=== PATIENT | female | born 1990 | race Caucasian/White ===

== ENCOUNTER 2018-01-05 11:24 | Observation (INO) | payer MEDICAID ==
--- NOTE | 2018-01-05 11:33 | EDPHY ---
H & P Stated Complaint: N/V INTERMITTENT PELVIC PAIN/DIABETIC "THOUGHT IT WAS A HANGOVER" Time Seen by Provider: 01/05/18 11:32 HPI/ROS: CHIEF COMPLAINT: Pelvic pain, vomiting, diabetic female HISTORY OF PRESENT ILLNESS: The patient has a history of insulin-dependent diabetes and presents to the ED with 2 days of intractable vomiting and elevated blood sugars. The patient reports she is also having intermittent generalized pelvic discomfort. She denies any vaginal bleeding, discharge or dysuria. The patient denies any recent hospitalizations for diabetic ketoacidosis. She is on long and short-acting insulin which she has been compliant with. She reports her blood sugar this morning was 350. The patient denies any diarrhea. She denies additional acute complaints aside from mild to moderate bilateral lower pelvic pain. REVIEW OF SYSTEMS: A comprehensive 10 point review of systems is otherwise negative aside from elements mentioned in the history of present illness. Source: Patient - Personal History LMP (Females 10-55): 1-7 Days Ago Current Tetanus/Diphtheria Vaccine: Yes - Medical/Surgical History Hx Diabetes: Yes Other PMH: DIABETIC - Social History Smoking Status: Never smoked - Physical Exam Exam: General Appearance: Alert, no distress Eyes: Pupils equal and round no pallor or injection ENT, Mouth: Dry mucous membranes Respiratory: There are no retractions, lungs are clear to auscultation Cardiovascular: Regular rate and rhythm Gastrointestinal: Minimal bilateral lower abdominal tenderness, no peritoneal signs, normal bowel sounds Neurological: 5/5 strength all 4 extremities Skin: Warm and dry, no rashes Musculoskeletal: Neck is supple nontender Extremities: symmetrical, full range of motion Constitutional: Initial Vital Signs Temperature (C) 36.5 C 01/05/18 11:29 Heart Rate 104 H 01/05/18 11:29 Respiratory Rate 18 01/05/18 11:29 Blood Pressure 138/73 H 01/05/18 11:29 O2 Sat (%) 100 01/05/18 11:29 O2 Delivery Mode Room Air Allergies/Adverse Reactions: No Known Allergies Allergy (Verified 01/05/18 13:20) Home Medications: Medication Instructions Recorded Insulin Aspart [novoLOG] 0 unit SQ TIDMEAL 01/05/18 Insulin Detemir [Levemir] 35 unit SQ DAILY 01/05/18 Melatonin [Melatonin 5 mg] 5 mg PO HS 01/05/18 Medical Decision Making ED Course/Re-evaluation: The patient presents to the ED with hyperglycemia, vomiting dehydration. She is noted to be in diabetic ketoacidosis with a venous pH of 7.1 a an anion gap of 33. The patient received 3 L of normal saline. She is started on insulin drip. I consulted the hospitalist at 12:45pm for ICU admission. She will be admitted Dr. Ramirez. Re-evaluated the patient at 1:00 p.m.. She is informed of the plan for admission and diagnosis of diabetic ketoacidosis. Differential Diagnosis: Differential diagnosis considered includes diabetic ketoacidosis, gastroenteritis, ectopic , urinary tract infection, hypokalemia, renal failure Critical Care Time: Critical care time exclusive of procedures and exclusive of the PA's time was 35 minutes, performed by myself, Estevan Lopez MD. The patient presents to the ED with diabetic ketoacidosis. She received aggressive fluid rehydration and was started on insulin drip. She will be admitted to the intensive care unit for further stabilization. - Data Points Laboratory Results: Laboratory Results 01/05/18 11:46 01/05/18 11:46 01/05/18 01/05/18 01/05/18 12:25 12:25 11:47 WBC RBC Hgb Hct MCV MCH MCHC RDW Plt Count MPV Neut % (Auto) Lymph % (Auto) [place] % (Auto) Eos % (Auto) Baso % (Auto) Nucleat RBC Rel Count Absolute Neuts (auto) Absolute Lymphs (auto) Absolute Monos (auto) Absolute Eos (auto) Absolute Basos (auto) Absolute Nucleated RBC Immature Gran % Immature Gran # Puncture Site VENOUS VBG pH 7.12 L 7.12 L* (7.31-7.42) (7.31-7.42) VBG HCO3 7 mEQ/L L mEQ/L (22-26) VBG Total CO2 8 mEq/L L mEq/L (21-27) VBG O2 Saturation 91 % H % (65-75) VBG Base Excess -21.2 mEq/L L mEq/L (-2.5-2.5) Mixed VBG pCO2 24 mmHg L mmHg (40-44) Mixed VBG pO2 82 mmHG H mmHG (35-40) Sodium Potassium Chloride Carbon Dioxide Anion Gap BUN Creatinine Estimated GFR Glucose Calcium Beta-Hydroxybutyrate Beta HCG, Qual Urine Color PALE YELLOW Urine Appearance HAZY Urine pH 5.0 (5.0-7.5) Ur Specific Joy 1.025 (1.002-1.030) Urine Protein NEGATIVE (NEGATIVE) Urine Ketones 2+ H (NEGATIVE) Urine Blood 2+ H (NEGATIVE) Urine Nitrate NEGATIVE (NEGATIVE) Urine Bilirubin NEGATIVE (NEGATIVE) Urine Urobilinogen NEGATIVE EU EU (0.2-1.0) Ur Leukocyte Esterase 1+ H (NEGATIVE) Urine RBC 3-5 /hpf H /hpf (0-3) Urine WBC 3-5 /hpf H /hpf (0-3) Ur Epithelial Cells 1+ /lpf /lpf (NONE-1+) Urine Bacteria TRACE /hpf H /hpf (NONE SEEN) Urine Mucus TRACE /lpf /lpf (NONE-1+) Urine Glucose 3+ H (NEGATIVE) 01/05/18 01/05/18 01/05/18 11:46 11:46 11:46 WBC 18.93 10^3/uL H 10^3/uL (3.80-9.50) RBC 5.10 10^6/uL 10^6/uL (4.18-5.33) Hgb 15.2 g/dL g/dL (12.6-16.3) Hct 47.4 % H % (38.0-47.0) MCV 92.9 fL fL (81.5-99.8) MCH 29.8 pg pg (27.9-34.1) MCHC 32.1 g/dL L g/dL (32.4-36.7) RDW 12.6 % % (11.5-15.2) Plt Count 391 10^3/uL 10^3/uL (150-400) MPV 10.9 fL fL (8.7-11.7) Neut % (Auto) 83.7 % H % (39.3-74.2) Lymph % (Auto) 9.5 % L % (15.0-45.0) [place] % (Auto) 5.6 % % (4.5-13.0) Eos % (Auto) 0.1 % L % (0.6-7.6) Baso % (Auto) 0.3 % % (0.3-1.7) Nucleat RBC Rel Count 0.0 % % (0.0-0.2) Absolute Neuts (auto) 15.85 10^3/uL H 10^3/uL (1.70-6.50) Absolute Lymphs (auto) 1.79 10^3/uL 10^3/uL (1.00-3.00) Absolute Monos (auto) 1.06 10^3/uL H 10^3/uL (0.30-0.80) Absolute Eos (auto) 0.01 10^3/uL L 10^3/uL (0.03-0.40) Absolute Basos (auto) 0.06 10^3/uL 10^3/uL (0.02-0.10) Absolute Nucleated RBC 0.00 10^3/uL 10^3/uL (0-0.01) Immature Gran % 0.8 % % (0.0-1.1) Immature Gran # 0.16 10^3/uL H 10^3/uL (0.00-0.10) Puncture Site VBG pH VBG HCO3 VBG Total CO2 VBG O2 Saturation VBG Base Excess Mixed VBG pCO2 Mixed VBG pO2 Sodium 136 mEq/L mEq/L (135-145) Potassium 4.6 mEq/L mEq/L (3.3-5.0) Chloride 96 mEq/L L mEq/L (97-110) Carbon Dioxide 7 mEq/l L* mEq/l (22-31) Anion Gap 33 mEq/L H mEq/L (8-16) BUN 22 mg/dL mg/dL (7-23) Creatinine 1.0 mg/dL mg/dL (0.6-1.0) Estimated GFR > 60 Glucose 472 mg/dL H mg/dL (70-100) Calcium 10.6 mg/dL H mg/dL (8.5-10.4) Beta-Hydroxybutyrate Beta HCG, Qual NEGATIVE Urine Color Urine Appearance Urine pH Ur Specific Joy Urine Protein Urine Ketones Urine Blood Urine Nitrate Urine Bilirubin Urine Urobilinogen Ur Leukocyte Esterase Urine RBC Urine WBC Ur Epithelial Cells Urine Bacteria Urine Mucus Urine Glucose 01/05/18 11:42 WBC RBC Hgb Hct MCV MCH MCHC RDW Plt Count MPV Neut % (Auto) Lymph % (Auto) [place] % (Auto) Eos % (Auto) Baso % (Auto) Nucleat RBC Rel Count Absolute Neuts (auto) Absolute Lymphs (auto) Absolute Monos (auto) Absolute Eos (auto) Absolute Basos (auto) Absolute Nucleated RBC Immature Gran % Immature Gran # Puncture Site VBG pH VBG HCO3 VBG Total CO2 VBG O2 Saturation VBG Base Excess Mixed VBG pCO2 Mixed VBG pO2 Sodium Potassium Chloride Carbon Dioxide Anion Gap BUN Creatinine Estimated GFR Glucose Calcium Beta-Hydroxybutyrate Pending Beta HCG, Qual Urine Color Urine Appearance Urine pH Ur Specific Joy Urine Protein Urine Ketones Urine Blood Urine Nitrate Urine Bilirubin Urine Urobilinogen Ur Leukocyte Esterase Urine RBC Urine WBC Ur Epithelial Cells Urine Bacteria Urine Mucus Urine Glucose Medications Given: Sodium Chloride (Ns) 1,000 mls @ 1,000 mls/hr IV EDNOW ONE PRN Reason: Protocol Stop: 01/05/18 13:32 Last Admin: 01/05/18 13:02 Dose: 1,000 mls Potassium Chloride (Potassium Cl 10 Meq (Premix)) 100 mls @ 100 mls/hr IV EDNOW ONE Stop: 01/05/18 13:44 Last Admin: 01/05/18 13:02 Dose: 100 mls Discontinued Medications Sodium Chloride (Ns) 1,000 mls @ 0 mls/hr IV EDNOW ONE; Wide Open PRN Reason: Protocol Stop: 01/05/18 11:51 Last Admin: 01/05/18 11:54 Dose: 1,000 mls Sodium Chloride (Ns) 1,000 mls @ 0 mls/hr IV EDNOW ONE; Wide Open PRN Reason: Protocol Stop: 01/05/18 11:51 Last Admin: 01/05/18 11:55 Dose: 1,000 mls Insulin Human Regular 100 unit / Miscellaneous Medication 1 ea/ Sodium Chloride 101 mls @ 0 mls/hr IV EDNOW ONE; Per Protocol PRN Reason: Protocol Stop: 01/05/18 12:34 Last Admin: 01/05/18 13:16 Dose: 101 mls Ondansetron HCl (Zofran) 4 mg IVP EDNOW ONE Stop: 01/05/18 11:51 Last Admin: 01/05/18 11:54 Dose: 4 mg Departure - Departure Disposition: [facility] Inpatient Acute Clinical Impression: Diabetic ketoacidosis Condition: Fair
[2018-01-05] MEDS ORDERED: NS 1,000 ML IV ONE ×3 (11:50→12:33)
[2018-01-05] MEDS ORDERED: ONDANSETRON 4 MG/2 ML VIAL IVP ONE (11:50)
[2018-01-05 11:52] LABS: PLATELET COUNT 391 10^3/uL (150-400)
[2018-01-05] MEDS ORDERED: INSULIN REGULAR HUMAN 100 UNIT, COSIGN. REQUIRED 1 EA in NS 100 ML IV ONE (12:33)
[2018-01-05] MEDS ORDERED: POTASSIUM Cl (KCl) 10 MEQ/100 ML BAG IV ONE (12:45)
[2018-01-05] MEDS ORDERED: POTASSIUM Cl (KCl) 100 ML IV ONE ×2 (12:45→12:46)
[2018-01-05] MEDS ORDERED: ACETAMINOPHEN 325 MG TAB PO PRN (12:56)
[2018-01-05] MEDS ORDERED: ONDANSETRON DISINTEGRATING 4 MG TAB PO PRN (12:56)
[2018-01-05] MEDS ORDERED: ONDANSETRON 4 MG/2 ML VIAL IVP PRN (12:56)
--- NOTE | 2018-01-05 15:28 | GHP ---
[f rep st] HISTORY AND PHYSICAL DATE OF ADMISSION: 01/05/2018 CHIEF COMPLAINT: DKA. HISTORY OF PRESENT ILLNESS: A pleasant 27-year-old female with type 1 diabetes on insulin, presenting with persistent nausea and vomiting for the past 2 days. She was at a rugby tournament on Friday and had a very long day of drinking alcohol. She threw up once that night and then had progressive nausea, vomiting beginning the next day to the point where she was unable to keep anything down. She complains of lower abdominal pain, which she contributes to retching. Has felt hot. No chills or sweats. Denies cough. Has a chronically runny nose. No dysuria, urinary frequency, urgency, or diarrhea. She has been trying to keep Pedialyte down. Has had hospitalization in the past for DKA, but it has been several years. REVIEW OF SYSTEMS: I completed a 10-point review of systems, negative, except as noted in HPI. PAST MEDICAL HISTORY: Includes type 1 diabetes, on insulin, prior DKA, history of ruptured ovarian cysts. PAST SURGICAL HISTORY: Tonsils and adenoidectomy. SOCIAL HISTORY: Lives in [place] with her boyfriend. Drinks 1-2 alcoholic drinks a night. Smokes marijuana. No illicits. No tobacco. Works for [employer]. FAMILY HISTORY: Great aunt and uncle with diabetes. Maternal grandmother with a stroke. Maternal grandfather with heart issues. ALLERGIES: None. HOME MEDICATIONS: Melatonin, Levemir 35 units daily, sliding scale NovoLog. PHYSICAL EXAMINATION: VITAL SIGNS: Temperature 36.5, blood pressure 138/73, heart rate 104 to 110s, respirations 18, 100% on room air. GENERAL: Well- appearing female, sitting up in no acute distress. HEENT: PERRLA. Mildly dry mucous membranes. CV: Tachy, regular. No murmurs, gallops, or rubs. LUNGS: Clear. No crackles or wheezing. ABDOMEN: Soft, nontender, nondistended. Positive bowel sounds. : No Medel. No suprapubic or CVA tenderness. MUSCULOSKELETAL: 5/5 upper lower extremity strength. SKIN: Warm, dry. No ulceration or rash. NEURO: 2 through 12 intact. PSYCH: Alert and oriented x3. LABORATORY DATA: WBCs 18, hemoglobin 15, hematocrit 47. VBG: pH 7.12, bicarb 7, CO2 8. Sodium 140, potassium 4.5, chloride 107, carbon dioxide 7, BUN 20, creatinine 0.8, glucose 340, repeat 472. Negative test. UA: +1 leukocyte esterase, negative nitrites, trace bacteria. ASSESSMENT/PLAN: 1. Diabetic ketoacidosis: due to acute nausea, vomiting with alcohol binge. Has pyuria on UA, but hold of abx until culture since asymptomatic. Monitor in the ICU on insulin drip and DKA protocol. 2. Tachycardia: from dehydration: Give intravenous fluids. 3. Leukocytosis: Stress inflammation and dehydration. Repeat in the morning after fluids. 4. Anion gap metabolic acidosis, secondary to starvation ketoacidosis: Again, diabetic ketoacidosis protocol, intravenous fluids. 5. Deep venous thrombosis prophylaxis: Low risk, ambulatory. DISPOSITION: Patient warrants observation admission given acute DKA warranting insulin drip, ICU monitoring, serial labs. /[id number]/MODL MTDD
[2018-01-05] MEDS ORDERED: INSULIN REGULAR HUMAN 100 UNIT in NS 100 ML IV SCH (15:30)
[2018-01-05] MEDS ORDERED: NS 500 ML IV ONE ×2 (15:30→16:40)
[2018-01-05] MEDS ORDERED: RN:ENTER POTASSIUM ICU PROTOCOL ON WORKLIST MISC ONE (15:30)
[2018-01-05] MEDS ORDERED: D10W 1,000 ML IV SCH ×2 (15:30)
[2018-01-05] MEDS ORDERED: D50W 25 GM/50 ML SYR IVP PRN ×2 (15:30)
[2018-01-05] MEDS ORDERED: PROTOCOL POTASSIUM 1 DOSE MISC PRN (15:43)
[2018-01-05] MEDS ORDERED: NS 1,000 ML IV SCH (17:40)
[2018-01-05] MEDS ORDERED: HYOSCYAMINE SULFATE 0.125 MG TAB PO PRN (19:47)
[2018-01-05] MEDS ORDERED: CALCIUM CARBONATE 500 MG CHEWABLE TAB PO PRN (19:48)
[2018-01-05] MEDS ORDERED: MAG HYDROX/AL HYDROX/SIMETH 30 ML UDCUP PO PRN (19:48)
[2018-01-05] MEDS ORDERED: MELATONIN 3 MG TAB PO SCH (21:00)
[2018-01-05] MEDS ORDERED: D50W 25 GM/50 ML VIAL IVP PRN (21:57)
[2018-01-05] MEDS: INSULIN LISPRO 100 UNIT/ML SC SCH (23:38)
[2018-01-06] MEDS ORDERED: POTASSIUM Cl (KCl) 10 MEQ in NS 100 ML IV SCH (04:00)
[2018-01-06] MEDS ORDERED: POTASSIUM CL 10 MEQ TAB PO ONE ×2 (07:30→10:45)
[2018-01-06] MEDS: INSULIN LISPRO 100 UNIT/ML SC SCH (07:58)
[2018-01-06 08:09] VITALS: BP 108/57
[2018-01-06] MEDS ORDERED: INSULIN GLARGINE 100 UNITS/ML UNIT SC SCH (09:00)
--- NOTE | 2018-01-06 11:24 | GDS ---
[f rep st] DISCHARGE SUMMARY DISCHARGE DIAGNOSES: 1. Diabetic ketoacidosis. 2. Tachycardia. 3. Leukocytosis. 4. Anion gap metabolic acidosis. HISTORY OF PRESENT ILLNESS: A pleasant 27-year-old type 1 female on insulin, presented with persistent nausea and vomiting for the past 2 days. She was at a [employer] tournament on Friday and had a very long day of drinking. She threw up that night, and then had progressive nausea beginning the next day, to the point where she was unable to keep anything down. She complains of lower abdominal pain, which she attributes to retching. Denies cough, dysuria, urinary frequency, or diarrhea. HOSPITAL COURSE BY PROBLEM: 1. DKA: Secondary to acute nausea/vomiting with alcohol binge. Had pyuria on UA, but negative culture. No symptoms. She was treated with insulin drip. Gap closed quickly. She is to be transitioned back to her home insulin. She is now eating and drinking without issue. 2. Tachycardia due to severe dehydration. This has resolved. 3. Leukocytosis. White count was 18 at time of admission. This was stress inflammation, dehydration, now 13, afebrile without any infectious symptoms. 4. Anion gap metabolic acidosis secondary to starvation ketosis. This closed with insulin and fluids. 5. Disposition: Patient is stable for discharge home. NEW MEDICATIONS: None. FOLLOWUP: With her primary and riveter hand. PHYSICAL EXAM: VITAL SIGNS: Temperature 36.7, blood pressure 108/57, heart rate in the 80s, respirations 16, 94% on room air. GENERAL: Well appearing, smiling, sitting up in bed, no acute distress. HEENT: PERRLA. Moist mucous membranes. CV: Regular rate and rhythm. LUNGS: Clear. ABDOMEN: Soft, nontender. Positive bowel sounds. : No CVA or suprapubic tenderness. MUSCULOSKELETAL: 5/5 upper and lower extremity strength. NEURO: Cranial nerves 2 through 12 intact. PSYCH: Alert and oriented x3. /[id number]/MODL MTDD
== END 2018-01-06 11:28 | disposition home or self-care (01) ==
LOC: INTOOBSV 12:45 → F2N 14:18
PROVIDERS: ADMIT Internal Medicine; ATTEND Internal Medicine
DX: E10.10 Type 1 diabetes mellitus with ketoacidosis without coma (principal); R00.0 Tachycardia, unspecified; D72.829 Elevated white blood cell count, unspecified; E86.0 Dehydration; Z79.4 Long term (current) use of insulin
CPT/HCPCS: 96361; 96374; 99291; G0378; 82435-PO; 82565-PO; 82947-PO; 82947-QW; 84132-PO; 84295-PO; 84520-PO; 85014-PO; J1815; J2405; J3480